=== PATIENT | male | born 1955 | race Caucasian/White ===

== ENCOUNTER 2017-10-22 17:24 | Emergency (ER) | payer OTHER ==
[~2017-10-22] VITALS: Ht 177.8 cm; Wt 97.5 kg
[2017-10-22] MEDS ORDERED: RAPAFLO4 MG PO (17:37)
[2017-10-22] MEDS ORDERED: NORCO 5-325 TA1 EACH PO (20:08)
== END 2017-10-22 20:20 | disposition home or self-care (01) ==
LOC: ED 17:24
DX: S22.41XA Multiple fractures of ribs, right side, initial encounter for closed fracture (principal); S01.01XA Laceration without foreign body of scalp, initial encounter; Z79.899 Other long term (current) drug therapy; W17.89XA Other fall from one level to another, initial encounter; Y93.89 Activity, other specified; Y92.89 Other specified places as the place of occurrence of the external cause; Y99.9 Unspecified external cause status